=== PATIENT | male | born 1990 | race Caucasian/White ===

== ENCOUNTER 2017-04-10 15:00 | Inpatient (IN) | payer OTHER ==
--- NOTE | ~2017-04-10 | DS ---
Unit #: [id number] #: [id number] Patient: [facility]ANT[facility] [id number] [facility] [place] [address] [id number] MR#: [id number] NAME: SIMEON CERVANTES ROOM: 71 Age: 26 Sex: M Admission Date: 04/10/2017 : 1990 Discharge Date: 04/13/2017 Attending Physician: Chris Pires M.D. Primary Care Physician: Kevon Land M.D. DISCHARGE SUMMARY IDENTIFYING DATA Ms. Salazar is a 25-year-old white female with history of mood disorder and substance abuse, who was self-referred to the hospital. DISCHARGE DIAGNOSES Psychiatric: Major depressive disorder, recurrent, moderate, without psychotic features; opioid dependence, moderate and acute withdrawals. Medical: None. Stressors: Mild psychosocial stressors. HISTORY OF PRESENT ILLNESS Please see initial psychiatric evaluation for details. PAST PSYCHIATRIC HISTORY Please see initial psychiatric evaluation for details. PAST MEDICAL HISTORY Please see initial psychiatric evaluation for details. HOSPITAL COURSE The patient was admitted to the adult chemical dependency and psychiatric unit at [facility] and was oriented to the hospital environment. Routine p.r.n. medications were initiated, and she was started on the detox protocol and was closely monitored. She was taking the medications regularly and was tolerating them fairly well and was able to come out of the detox without any complications and was willing to continue treatment on an outpatient basis, and as such, it was decided that she will be discharged home and will continue treatment on an outpatient basis. DISCHARGE MEDICATIONS None. DISCHARGE CONDITION Stable. PROGNOSIS Fair. Dictated by... Marissa Jade/catie Unit #: [id number] #: [id number] Patient: SIMEON CERVANTES TD: 04/26/2017 06:32 JOB #: [id number] DISCHARGE SUMMARY Page 1 of 1 X Chris Pires MD X DISCHARGE SUMMARY
--- NOTE | ~2017-04-10 | PN ---
Unit #: [id number] #: [id number] Patient: SIMEON MOSLEY [id number] [facility] [address] [place] [address] [id number] MR#: [id number] NAME: SIMEON MOSLEY ROOM: P171 Age: 26 Sex: M Admission Date: 04/10/2017 : 1990 Attending Physician: Chris Pires M.D. Admitting Physician: Chris Pires M.D. Primary Care Physician: Marissa Snider PROGRESS NOTES DATE OF SERVICE: 04/13/2017 SUBJECTIVE Mr. Mosley is a 26-year-old white male, who was seen today and chart was reviewed, and case was discussed with the staff. He has been anxious, withdrawn, though has not shown any agitation, irritability, or behavioral problems and has been cooperative with treatment recommendation, and appears to be coming out of the detox and has been showing improvement in his underlying depressive symptoms as well. MENTAL STATUS EXAMINATION Young white male, who was casually dressed with fair personal hygiene, appears to be in no acute distress or discomfort. He was awake and alert on interaction with intact orientation. His mood was anxious with a congruent affect. He denies any suicidal or homicidal ideations. His insight and judgment remain slightly impaired. TREATMENT PLAN 1. We will continue his current medications and treatment protocol. We will monitor his response and make further adjustments as needed. 2. We will continue to follow up. Dictated by... Marissa Jade/catie TD: 04/14/2017 08:14 JOB #: [id number] [facility] PROGRESS NOTES Page 1 of 1 X Chris Pires MD PROGRESS NOTE
--- NOTE | ~2017-04-10 | PA ---
Unit #: [id number] #: [id number] Patient: SIMEON MOSLEY [id number] [facility] [address] [place] [address] [id number] MR#: [id number] NAME: SIMEON MOSLEY ROOM: P171 Age: 26 Sex: M Admission Date: 04/10/2017 : 1990 Date of Assessment: 04/11/2017 Attending Physician: Chris Pires M.D. Admitting Physician: Chris Pires M.D. Primary Care Physician: Kevon Land M.D. PSYCHIATRIC ASSESSMENT DATE OF SERVICE 04/11/2017. IDENTIFYING DATA Mr. Mosley is a 26-year-old single white male, who is a resident of [place], [place] and was self-referred to the hospital on a voluntary basis. CHIEF COMPLAINT "drug usage and I feel mentally unstable." HISTORY OF PRESENT ILLNESS A 26-year-old white male, who was self-referred to the hospital, accompanied by his father. Upon presentation, he stated that he has been using drugs and he has been feeling unstable mentally and "I just lost my mind with my grandma, she had a stroke little while back and my uncles are trying to put her in the home and my dad is not and she is fine and is trying to take care of her. It brought back old memories of my grandpa dying, trying to escape with depression, trying to stop this before The patient does report increasing depression, anxiety, irritability, restlessness, feelings of hopelessness and helplessness, and reports having suicidal ideations. SUBSTANCE ABUSE HISTORY The patient has extensive history of substance abuse and history of dependence including alcohol, cannabis, cocaine, opioids, and amphetamine abuse, and has done spice as well. Reports currently opioids to be his drug of choice as he reports that he has been using a gram of IV heroin on daily basis. PAST PSYCHIATRIC HISTORY The patient has had history of inpatient psychiatric and chemical dependency treatment at [facility]. Review of the medical records indicated currently he is not active in treatment program, is not seeing a psychiatrist, and is not taking any psychotropic medications. PAST MEDICAL HISTORY Hepatitis C. ALLERGIES Ceclor and Rocephin. Unit #: [id number] #: [id number] Patient: SIMEON MOSLEY PERSONAL AND SOCIAL HISTORY A 26-year-old white male, who reports that he is single, unemployed, and lives at home with his parents and has decent social support system. MENTAL STATUS EXAMINATION Young white male, who was casually dressed with fair personal hygiene, appears to be in no acute distress or discomfort. He was awake and alert on interaction with intact orientation to time, place, and person. His mood was anxious and depressed with a congruent affect. His speech was slow and restricted in content. His thought processes were disorganized with some looseness of associations and suicidal ideations. His insight and judgment remain significantly impaired. DIAGNOSTIC IMPRESSION Psychiatric: Major depressive disorder, recurrent, moderate, without psychotic features; opioid dependence, moderate and acute withdrawals. Medical: Hepatitis C. Stressors: Moderate psychosocial stressors. TREATMENT PLAN 1. The patient has presented with a history of mood disorder and substance abuse and has been decompensating and will need inpatient hospitalization for safety and stabilization. We will start him back on his home medications. We will adjust the medications and monitor response. 2. Supportive therapy was provided to the patient. 3. Safe, structured, and nourishing environment will be provided. ESTIMATED LENGTH OF STAY 5 to 7 days. ABILITY TO HELP SELF Limited. WILLINGNESS TO HELP SELF The patient appears to be willing to help self. STRENGTHS 1. Communicative. 2. Cooperative. PROBLEMS 1. Chronic dysphoric symptoms. 2. social support system. DISCHARGE CRITERIA This will be contingent upon the patient's ability to show resolution of his depression and anxiety and his ability to stay safe to himself and others, particularly after discharge from the hospital. Dictated by... Marissa Jdae/catie TD: 04/11/2017 07:05 JOB #: [id number] Unit #: [id number] #: [id number] Patient: SIMEON MOSLEY PSYCHIATRIC ASSESSMENT Page 1 of 1 X Chris Pires MD PSYCHIATRIC ASSESSMENT
--- NOTE | ~2017-04-10 | PN ---
Unit #: [id number] #: [id number] Patient: SIMEON MOSLEY [id number] [facility] [address] [place] [address] [id number] MR#: [id number] NAME: SIMEON MOSLEY ROOM: P171 Age: 26 Sex: M Admission Date: 04/10/2017 : 1990 Attending Physician: Chris Pires M.D. Admitting Physician: Chris Pires M.D. Primary Care Physician: Marissa Snider PROGRESS NOTES DATE OF SERVICE: 04/12/2017 SUBJECTIVE Mr. Mosley is a 26-year-old white male with substance abuse and mood disorder, who was seen today and chart was reviewed and case was discussed with the staff. He once again was seen to be curled up in his bed and was very despondent, withdrawn, seclusive, and isolative, and has not been socializing or interacting, was seen to have blunted affect with minimal interaction, poor eye contact, and expressing significant depressive symptoms. Meanwhile, he has been taking the medications and tolerating them fairly well with no reported side effects. MENTAL STATUS EXAMINATION Young white male who was casually dressed with fair personal hygiene, appears to be in no acute distress or discomfort. He was awake and alert with impaired attention and concentration. His mood was anxious with a congruent affect. His speech was slow and restricted in content. His thought processes were disorganized with some looseness of associations and thought blocking. His insight and judgment remain significantly impaired. TREATMENT PLAN 1. We will continue him on his current medications and treatment protocol. We will monitor his response to the medications and make further adjustments as needed. 2. We will continue to follow up. Dictated by... Chris Pires M.D. IAA/modl TD: 04/12/2017 07:47 JOB #: [id number] Unit #: [id number] #: [id number] Patient: SIMEON MOSLEY PROGRESS NOTES Page 1 of 1 X Chris Pires MD X PROGRESS NOTE
--- NOTE | ~2017-04-10 | HP ---
Unit #: [id number] #: [id number] Patient: SIMEON CERVANTES [id number] [facility] [address] [place] [address] [id number] I MR#: [id number] NAME: SIMEON CERVANTES. ROOM: P171 Age: 26 Sex: M Admission Date: 04/10/2017 : 1990 Attending Physician: Chris Pires M.D. Admitting Physician: Chris Pires M.D. Primary Care Physician: Kevon Land M.D. HISTORY AND PHYSICAL HISTORY OF PRESENT ILLNESS Simeon is a 26 year old admitted to [facility] because of his drug use. PAST MEDICAL HISTORY 1. History of illicit substance abuse. 2. Hepatitis C. PAST SURGICAL HISTORY Nothing reported. ALLERGIES Ceclor, ceftriaxone. SOCIAL HISTORY Smokes 1 pack per day. Dips a can of snuff on a daily basis. Admits to using alcohol on occasion and has a long history of poly-illicit substance abuse to include IV heroin. FAMILY HISTORY Medically noncontributory. REVIEW OF SYSTEMS CONSTITUTIONAL: No fever or chills. HEENT: Denies any sore throat, ear pain or runny nose. CARDIOVASCULAR: Denies chest pain, irregular heart rhythm or palpitations. CHEST: Denies shortness of breath or cough. No hemoptysis. GASTROINTESTINAL: Denies nausea, vomiting, diarrhea or chronic constipation. ENDOCRINE: Denies history of increased thirst or urination. No recent significant weight loss or gain. GENITOURINARY: Denies dysuria, frequency, or hematuria. SKIN: Denies any rashes. HEMATOLOGIC: Denies history of increased bleeding or bruising. MUSCULOSKELETAL: Denies any hot, swollen joints. No generalized muscle pain. NEUROLOGIC: Denies problems with vision or speech. No frequent, severe headaches. No numbness, tingling or weakness in any extremities. Denies loss of bladder or bowel control. CURRENT MEDICATIONS Detox protocol. PHYSICAL EXAMINATION Unit #: [id number] #: [id number] Patient: SIMEON CERVANTES GENERAL: Alert, well-nourished, in no apparent distress. VITAL SIGNS: Blood pressure 100/52, heart rate 62, respirations 16, temperature 98.6. WEIGHT: 158. HEIGHT: 5 feet 9 inches. SKIN: Warm and dry without rash or lesion. HEENT: Normocephalic. TMs not viewed. Oral and nasal passages clear. Conjunctivae clear. PERRLA. EOMs intact. NECK: Supple without lymphadenopathy or thyromegaly. HEART: Regular rate and rhythm without murmur. LUNGS: Clear. ABDOMEN: Soft, nontender. : Not done. EXTREMITIES: No evidence of cyanosis, clubbing or edema. Moves all without focal deficit. NEUROLOGICAL: Grossly within normal limits. Cranial Nerves: II: Visual medel are intact. III, IV AND : Extraocular movements are intact. Pupils are equal, round and reactive to light. V: Facial sensation is grossly normal. VII: Facial movements and expression are normal. VIII: Auditory acuity grossly intact. IX, X: Uvula is midline. Phonation is normal. XI: Patient shrugs shoulders and turns head normally. XII: Tongue protrudes in the midline. Sensory and Motor Function: Sensory and motor sensation is grossly normal. Motor: moves all extremities well. Coordination: Gait is normal. Deep Tendon Reflexes: Intact. IMPRESSION Psychiatric admission. RECOMMENDATIONS PSYCHIATRIC: Per psychiatrist. MEDICAL: See no contraindications to participate in facility's activities. MEDICAL PROGNOSIS Good. MEDICAL CONDITION Stable. Dictated by... Aaron KingAChristie. for Marissa Snider/selina TD: 04/11/2017 18:41 JOB #: [id number] Unit #: [id number] #: [id number] Patient: SIMEON CERVANTES HISTORY AND PHYSICAL Page 1 of 1 X Ofelia Catalan HISTORY AND PHYSICAL
[~2017-04-10 15:00] MED LIST: NAPROSYN250 M1 PO; WELLBUTRIN100 MG PO
[2017-04-11 09:41] LABS: BASOPHIL% 0.6 % (0-2.5); DIFF IND NO; EOSINOPHIL# 0.1 X10e3 (0-0.7); EOSINOPHIL% 1.8 % (0.0-7.0); HEMATOCRIT 38.3 % (38.0-50.0); HEMOGLOBIN 12.7 gm/dL (13.0-16.0); LYMPHOCYTE# 1.6 X10e3 (1.0-3.5); LYMPHOCYTE% 28.9 % (17.0-45.0); MEAN CELL VOLUME 82.9 FL (83-96); MEAN CORPUSCULAR HEMOGLOBIN 27.3 PG (28-34); MEAN PLATELET VOLUME 7.3 FL (6.5-11.5); MONOCYTE# 0.4 X10e3 (0-1.0); MONOCYTE% 6.4 % (3.0-12.0); NEUTROPHIL# 3.4 X10e3 (1.5-7.1); NEUTROPHIL% 62.3 % (40-75); PLATELET COUNT 253 X10e3 (140-420); RED BLOOD COUNT 4.63 X10e (3.90-5.60); RED CELL DISTRIBUTION WIDTH 15.7 % (11.0-15.5); WHITE BLOOD COUNT 5.5 X10e3 (4.0-10.5)
[2017-04-11 09:51] LABS: ALBUMIN SERUM 3.8 g/dL (3.5-5.0); BILIRUBIN,TOTAL 0.5 mg/dL (0.2-2.0); CALCIUM SERUM 9.1 mg/dL (8.4-10.2); CREATININE SERUM 0.8 mg/dL (0.6-1.4); GLOM FILT RATE Estimated 123.3 mL/min (>60); POTASSIUM 4.1 mmol/L (3.5-5.1); PROTEIN TOTAL SERUM 6.7 g/dL (6.0-8.3)
[2017-04-12 12:52] LABS: URINE APPEARANCE CLEAR; URINE BILIRUBIN NEG (NEG); URINE BLOOD NEG (NEG); URINE COLOR DK YELLOW; URINE GLUCOSE NEG (NEG); URINE KETONE NEG (NEG); URINE LEUKOCYTE ESTERASE NEG (NEG); URINE NITRATE NEG (NEG); URINE PROTEIN NEG (NEG); URINE SPECIFIC GRAVITY 1.021 (1.003-1.035)
[2017-04-12 13:09] LABS: AMPHETAMINE NEG (NEG); BARBITURATES NEG (NEG); BENZODIAZEPINES NEG (NEG); COCAINE NEG (NEG); MARIJUANA NEG (NEG); OPIATES POS (NEG); TRICYCLIC ANTIDEPRESSANTS NEG (NEG); U METHADONE NEG (NEG)
[2017-04-16 12:58] LABS: HA AB IGM (HEPPAN) Nonreactive (()); HB CORE AB IGM (HEPPAN) Nonreactive (Nonreactive); HB S AG (HEPPAN) Nonreactive (Nonreactive); HEP C AB (HEPPAN) Reactive (Nonreactive)
== END 2017-04-13 14:26 | disposition left against medical advice (07) | DRG 885 ==
LOC: P1E 18:45
PROVIDERS: Psychiatry & Neurology Psychiatry
DX: F33.1 Major depressive disorder, recurrent, moderate (principal); R45.851 Suicidal ideations; F11.23 Opioid dependence with withdrawal; B19.20 Unspecified viral hepatitis C without hepatic coma; Z88.1 Allergy status to other antibiotic agents; Z88.8 Allergy status to other drugs, medicaments and biological substances; F17.210 Nicotine dependence, cigarettes, uncomplicated; F17.220 Nicotine dependence, chewing tobacco, uncomplicated
CPT/HCPCS: 80053; 80074; 80307; 81003; 85025; 86592; 87522

== ENCOUNTER 2017-04-30 19:00 | Inpatient (IN) | payer OTHER ==
--- NOTE | ~2017-04-30 | PN ---
Unit #: [id number] #: [id number] Patient: SIMEON MOSLEY [id number] [facility] [address] [place] [address] [id number] MR#: [id number] NAME: SIMEON MOSLEY ROOM: P214 Age: 26 Sex: M Admission Date: 05/01/2017 : 1990 Attending Physician: Chris Pires M.D. Admitting Physician: Chris Pires M.D. Primary Care Physician: Generic Doctor Not In System [facility] PROGRESS NOTES DATE OF SERVICE: 05/04/2017 SUBJECTIVE Mr. Mosley is a 26-year-old white male, who was seen today and chart was reviewed, and case was discussed with the staff. He has been anxious, withdrawn, though reports doing somewhat better, though still has been struggling with mood swings, irritability, and wants his therapy to be increased further. MENTAL STATUS EXAMINATION Young white male, who was casually dressed with fair personal hygiene, appears to be in no acute distress or discomfort. He was awake and alert on interaction with intact orientation. His mood was anxious with a congruent affect. He denies any suicidal or homicidal ideations and also denies any auditory or visual hallucinations. His insight and judgment remain slightly impaired. TREATMENT PLAN 1. We will continue his current medications and treatment protocol. We will monitor his response to the medications and make further adjustments as needed. 2. We will continue to follow up. Dictated by... Marissa Jade/alicial TD: 05/04/2017 23:53 JOB #: [id number] [facility] PROGRESS NOTES Page 1 of 1 X Chris Pires MD X PROGRESS NOTE
--- NOTE | ~2017-04-30 | PN ---
Unit #: [id number] #: [id number] Patient: SIMEON MOSLEY [id number] [facility] [address] [place] [address] [id number] MR#: [id number] NAME: SIMEON MOSLEY ROOM: P211 Age: 26 Sex: M Admission Date: 05/01/2017 : 1990 Attending Physician: Chris Pires M.D. Admitting Physician: Chris Pires M.D. Primary Care Physician: Generic Doctor Not In System [facility] PROGRESS NOTES DATE OF SERVICE: 05/02/2017 SUBJECTIVE Mr. Mosley is a 26-year-old white male with substance abuse and mood disorder, who was seen today and chart was reviewed, and case was discussed with the staff. He has been anxious, withdrawn, distress or discomfort. Meanwhile, he has been cooperative with treatment recommendation and has been taking medications and tolerating them fairly well, but describes himself to be in distress or discomfort. MENTAL STATUS EXAMINATION Young white male, who was casually dressed with fair personal hygiene, appears to be in no acute distress or discomfort. He was awake and alert on interaction with intact orientation. His mood was anxious with a congruent affect. He denies any suicidal or homicidal ideation. Insight and judgment remain slightly impaired. TREATMENT PLAN 1. We will continue him on his current treatment protocol. We will monitor his response and make further adjustments as needed. 2. We will continue to follow up. Dictated by... Marissa Jade/alicial TD: 05/03/2017 01:44 JOB #: [id number] [facility] PROGRESS NOTES Page 1 of 1 X Chris Pires MD PROGRESS NOTE
--- NOTE | ~2017-04-30 | DS ---
Unit #: [id number] #: [id number] Patient: [facility] [id number] [facility] [address] [place] [address] [id number] MR#: [id number] NAME: SIMEON MOSLEY ROOM: [facility] Age: 26 Sex: M Admission Date: 05/01/2017 : 1990 Discharge Date: Attending Physician: Chris Pires M.D. Primary Care Physician: Generic Doctor Not In System DISCHARGE SUMMARY IDENTIFYING DATA Mr. Mosley is a 26-year-old single white male who is a resident of [place], [place] and is known to us from previous multiple encounters and was self-referred to the hospital on a voluntary basis. DISCHARGE DIAGNOSES Psychiatric: Major depressive disorder, recurrent, moderate, without psychotic features; opioid dependence, moderate and acute withdrawals; methamphetamine dependence, moderate. Medical: None. Stressors: Mild psychosocial stressors. HISTORY OF PRESENT ILLNESS Please see initial psychiatric evaluation for details. PAST PSYCHIATRIC HISTORY Please see initial psychiatric evaluation for details. PAST MEDICAL HISTORY Please see initial psychiatric evaluation for details. HOSPITAL COURSE The patient was admitted to the adult chemical dependency and psychiatric unit at [facility] and was oriented to the hospital environment. Routine p.r.n. medications were initiated and he was started back on his home medications and medications were adjusted and detox protocol was initiated and Seroquel was also added as a mood stabilizer and he was closely monitored. He was taking the medications regularly and was tolerating them fairly well and was able to show a decent therapeutic response, and as such, it was decided that he will be discharged home and will continue treatment on an outpatient basis. DISCHARGE MEDICATIONS Seroquel 200 mg at bedtime. DISCHARGE CONDITION Stable. PROGNOSIS Fair. Dictated by... Chris Pires M.D. Unit #: [id number] #: [id number] Patient: SIMEON MOSLEY IAA/modl TD: 05/05/2017 07:28 JOB #: [id number] DISCHARGE SUMMARY Page 1 of 1 X Chris Pires MD X DISCHARGE SUMMARY
--- NOTE | ~2017-04-30 | PN ---
Unit #: [id number] #: [id number] Patient: SIMEON MOSLEY [id number] [facility] [address] [place] [address] [id number] I MR#: [id number] NAME: SIMEON MOSLEY. ROOM: P211 Age: 26 Sex: M Admission Date: 05/01/2017 : 1990 Attending Physician: Chris Pires M.D. Admitting Physician: Chris Pires M.D. Primary Care Physician: Monico Doctor Not In System [facility] PROGRESS NOTES DATE 05/03/2017 DISCUSSION Mr. Mosley is a 26-year-old, white male who was seen today and chart was reviewed and case was discussed with the staff. He remains anxious, withdrawn and somewhat disorganized and seclusive to himself though reports not feeling much better and still struggling with detox symptoms and lack of sleep despite my giving him Seroquel at bedtime. He has been taking medications and tolerating them fairly well with no reported side effects. MENTAL STATUS EXAM Young white male who was casually dressed with fair personal hygiene, appears to be in no acute distress or discomfort. He was awake and alert on interaction with intact orientation. His mood was anxious with congruent affect. He denies any suicidal or homicidal ideation. Also, denies any auditory or visual hallucinations. His insight and judgement remains slightly impaired. TREATMENT PLAN 1. We will continue him on his current treatment protocol. We will monitor his response and make further adjustments as needed. 2. We will continue to follow up. Dictated by... Marissa Jade/zhang TD: 05/04/2017 21:32 JOB #: [id number] Unit #: [id number] #: [id number] Patient: SIMEON MOSLEY [facility] PROGRESS NOTES Page 1 of 1 X Chris Pires MD PROGRESS NOTE
--- NOTE | ~2017-04-30 | PA ---
Unit #: [id number] #: [id number] Patient: SIMEON MOSLEY [id number] [facility] [address] [place] [address] [id number] MR#: [id number] NAME: SIMEON MOSLEY. ROOM: P211 Age: 26 Sex: M Admission Date: 05/01/2017 : 1990 Date of Assessment: 05/01/2017 Attending Physician: Chris Pires M.D. Admitting Physician: Chris Pires M.D. Primary Care Physician: Generic Doctor Not In System PSYCHIATRIC ASSESSMENT DATE OF SERVICE 05/01/2017. IDENTIFYING DATA Mr. Mosley is a 26-year-old single white male, who is a resident of [place], [place], and is known to us from previous multiple encounters and was self-referred to the hospital on a voluntary basis. CHIEF COMPLAINT "I've been feeling suicidal due to dealing with my life." HISTORY OF PRESENT ILLNESS Mr. Mosley is a 26-year-old white male with history of mood disorder and substance abuse, who was self-referred to the hospital reporting increasing depression and suicidal ideation and reports that he hates his life due to drug abuse and that he uses 1 g of IV heroin on daily basis and last use was this morning. He reports that he has been using this amount for several months and he has recently started using intravenous methamphetamine as well and has been using half a gram of IV methamphetamine with the last use yesterday. He does report increasing depression, anxiety, irritability, restlessness, feelings of hopelessness and helplessness, and suicidal ideations and as such, recommendation for inpatient level of care for safety and stabilization was made. SUBSTANCE ABUSE HISTORY The patient reports history of opioid and methamphetamine dependence and reports opioid particularly IV heroin to be his drug of choice, though he also mentioned that recently he has started using IV methamphetamine as well. PAST PSYCHIATRIC HISTORY The patient has had [facility]. Review of the medical records indicate that currently he is not active in any treatment program, is not seeing a psychiatrist, and is not taking any psychotropic medications. PAST MEDICAL HISTORY Hepatitis C. ALLERGIES Ceclor and Rocephin. Unit #: [id number] #: [id number] Patient: SIMEON MOSLEY PERSONAL AND SOCIAL HISTORY A 26-year-old white male, who reports that he is single, unemployed, and essentially homeless and has poor social support system. MENTAL STATUS EXAMINATION Young white male who was casually dressed with fair personal hygiene, appears to be in no acute distress or discomfort. He was awake and alert on interaction with intact orientation to time, place, and person. His mood was anxious and depressed with a congruent affect. His speech was slow and restricted in content. He reports having suicidal ideations, but denies any homicidal ideations, and also denies any auditory or visual hallucinations. His insight and judgment remain significantly impaired. DIAGNOSTIC IMPRESSION Psychiatric: Major depressive disorder, recurrent, moderate, without psychotic features; opioid dependence, moderate and acute withdrawals; methamphetamine dependence, moderate. Medical: None. Stressors: Moderate psychosocial stressors. TREATMENT PLAN 1. The patient has presented with history of substance abuse and mood disorder, and has been decompensating and will need inpatient hospitalization for detoxification, safety, and stabilization. We will start him on detox protocol. We will closely monitor for any worsening withdrawal symptoms. 2. Supportive therapy was provided to the patient. 3. Safe, structured, and nourishing environment will be provided. ESTIMATED LENGTH OF STAY 5 to 7 days. ABILITY TO HELP SELF Limited. WILLINGNESS TO HELP SELF The patient appears to be willing to help self. STRENGTHS 1. Communicative. 2. Cooperative. PROBLEMS 1. Chronic dysphoric symptoms. 2. Chronic chemical dependency. 3. Poor social support system. DISCHARGE CRITERIA This will be contingent upon the patient's ability to go through detox without having any significant withdrawal symptoms as well as his ability to stay safe to himself, particularly after discharge from the hospital. Dictated by... Marissa Jade/catie Unit #: [id number] #: [id number] Patient: SIMEON MOSLEY TD: 05/02/2017 22:32 JOB #: [id number] PSYCHIATRIC ASSESSMENT Page 1 of 1 X Chris Pires MD PSYCHIATRIC ASSESSMENT
--- NOTE | ~2017-04-30 | HP ---
Unit #: [id number] #: [id number] Patient: SIMEON CERVANTES [id number] [facility] [address] [place] [address] [id number] MR#: [id number] NAME: SIMEON CERVANTES ROOM: P211 Age: 26 Sex: M Admission Date: 05/01/2017 : 1990 Attending Physician: Chris Pires M.D. Admitting Physician: Chris Pires M.D. Primary Care Physician: Generic Doctor Not In System HISTORY AND PHYSICAL HISTORY OF PRESENT ILLNESS Simeon is a 26 year old admitted to [address] [place] [address] because of his continued drug use. He was recently discharged from this facility after treatment for the same. The patient was seen and H and P dated 04/11/2017 was reviewed. This is current. No changes. Please see H and P dated 04/11/2017. Dictated by... Ofelia Catalan P.A.-C. for Marissa Snider/zhang TD: 05/02/2017 00:56 JOB #: [id number] HISTORY AND PHYSICAL Page 1 of 1 X Ofelia Catalan HISTORY AND PHYSICAL
== END 2017-05-05 16:05 | disposition home or self-care (01) | DRG 897 ==
LOC: POF 05-01 08:18 → P2S 05-01 08:18
PROC: HZ2ZZZZ Detoxification Services for Substance Abuse Treatment (ICD-10-PCS; principal; 2017-05-01)
DX: F11.23 Opioid dependence with withdrawal (principal); F33.1 Major depressive disorder, recurrent, moderate; F15.20 Other stimulant dependence, uncomplicated